=== PATIENT | male | born 1985 | race Caucasian/White ===

== ENCOUNTER 2016-10-02 07:44 | Emergency (ER) | payer MEDICAID ==
[~2016-10-02] VITALS: Ht 170.2 cm; Wt 84.1 kg
[~2016-10-02 07:44] MED LIST: FLEXERIL 1010 MG/TAB PO; NO HOME MEDICATIONS; NORCO 325 MG-51 TAB PO
[2016-10-02 07:54] VITALS: BP 136/106; PULSE 94
[2016-10-02] MEDS ORDERED: PREDNISONE20 MG PO (08:42)
[2016-10-02] MEDS ORDERED: FLEXERIL 1010 MG/TAB PO (08:42)
[2016-10-02] MEDS ORDERED: NORCO 325 MG-51 TAB PO (08:42)
[2016-10-02 08:57] VITALS: TEMP 98.1
== END 2016-10-02 08:53 | disposition home or self-care (01) ==
LOC: COL.ER 07:44
DX: M54.5 Low back pain (principal); G89.29 Other chronic pain